=== PATIENT | female | born 1990 | race Caucasian/White ===

== ENCOUNTER 2018-11-16 00:45 | Emergency (ER) | payer OTHER ==
[2018-11-16] MEDS ORDERED: Ibuprofen TAB* 600 MG PO ONE (03:00)
[2018-11-16] MEDS ORDERED: Acetaminophen TAB* 325 MG PO ONE (03:00)
--- NOTE | 2018-11-16 03:28 | ED ---
Upper Extremity Pain - HPI Summary HPI Summary: Pt is a 28 y/o F presenting to the ED with a chief complaint of L elbow pain. She states she was walking home when she fell and her L elbow landed on some rocks. She also hurt her ankle, and reports some bruising. She denies taking any blood thinners or experiencing fevers. - History of Current Complaint Chief Complaint: EDFall Stated Complaint: FALL PER PT Time Seen by Provider: 11/16/18 02:52 Hx Obtained From: Patient Mechanism Of Injury: Fall From A Standing Position Onset/Duration: Started Hours Ago, Still Present Timing: Constant, Lasting Hours Severity Initially: Moderate Severity Currently: Moderate Pain Location: Elbow - left Aggravating Factor(s): Nothing Alleviating Factor(s): Nothing Associated Signs & Symptoms: Positive: Bruising. Negative: Fever - Allergies/Home Medications Allergies/Adverse Reactions: Allergies Allergy/AdvReac Type Severity Reaction Status Date / Time Sulfa (Sulfonamide Allergy Unknown Verified 11/16/18 00:53 Antibiotics) Reaction Details Home Medications: Home Medications CloZAPine TAB* 100 mg PO DAILY 11/16/18 [History Confirmed 11/16/18] PMH/Surg Hx/FS Hx/Imm Hx Previously Healthy: Yes Endocrine/Hematology History: Denies: Hx Diabetes Cardiovascular History: Denies: Hx Hypertension Sensory History: Reports: Hx Contacts or Glasses Opthamlomology History: Reports: Hx Contacts or Glasses Neurological History: Denies: Hx Headaches, Hx Migraine Psychiatric History: Reports: Hx Bipolar Disorder - pt states she has bipolar Denies: Hx Eating Disorder, Hx of Violent Episodes Against Others - Cancer History Hx Chemotherapy: No Hx Radiation Therapy: No Hx Palliative Cancer Treatment: No - Surgical History Hx Anesthesia Reactions: No Infectious Disease History: No Infectious Disease History: Denies: Traveled Outside the [place] in Last 30 Days - Family History Known Family History: Negative: Renal Disease - Social History Alcohol Use: Rare Hx Substance Use: No Substance Use Type: Reports: None Hx Tobacco Use: No Smoking Status (MU): Never Smoked Tobacco Review of Systems Negative: Fever Positive: Arthralgia Positive: Bruising All Other Systems Reviewed And Are Negative: Yes Physical Exam - Summary Physical Exam Summary: Constitutional: Well-developed, Well-nourished, Alert. (-) Distressed Skin: Warm, Dry HENT: Normocephalic; Atraumatic Eyes: Conjunctiva normal Neck: Musculoskeletal ROM normal neck. (-) JVD, (-) Stridor, (-) Tracheal deviation Cardio: Rhythm regular, rate normal, Heart sounds normal; Intact distal pulses; Radial pulses are 2+ and symmetric. (-) Murmur Pulmonary/Chest wall: Effort normal. (-) Respiratory distress, (-) Wheezes, (-) Rales Abd: Soft, (-) tenderness, (-) Distension, (-) Guarding, (-) Rebound Musculoskeletal: (-) Edema. Minimal tenderness to her L elbow. Minimal ROM but able to range. Lymph: (-) Cervical adenopathy Neuro: Alert, Oriented x3 Psych: Mood and affect Normal Triage Information Reviewed: Yes Vital Signs On Initial Exam: Initial Vitals Temp Pulse Resp BP Pulse Ox 100.1 F 94 16 146/96 99 11/16/18 00:45 11/16/18 00:45 11/16/18 00:45 11/16/18 00:45 11/16/18 00:45 Vital Signs Reviewed: Yes Procedures - Sedation Patient Received Moderate/Deep Sedation with Procedure: No - Splinting Left Upper Extremity Location: L elbow Hand-Made Type: fiberglass Splint: posterior long arm Pre-Proc Neuro Vasc Exam: normal Post-Proc Neuro Vasc Exam: normal, unchanged from pre-exam Splint Applied by Provider: [facility] - Vital Signs Vital Signs Temp Pulse Resp BP Pulse Ox 11/16/18 00:45 100.1 F 94 16 146/96 99 - Laboratory Lab Statement: Any lab studies that have been ordered have been reviewed, and results considered in the medical decision making process. - Radiology Elbow XR Radiology Interpretation Completed By: Radiologist Summary of Radiographic Findings: Bilateral humeral condyle fractures. Elbow joint effusion. ED physician has reviewed this report. Shoulder XR Radiology Interpretation Completed By: ED Physician Summary of Radiographic Findings: Negative for fracture. Pending official radiology report. Wrist XR Radiology Interpretation Completed By: ED Physician Summary of Radiographic Findings: Negative for fracture. Pending official radiology report. - CT Upper Extremity CT CT Interpretation Completed By: Radiologist Summary of CT Findings: Comminuted fracture of the distal humerus. ED physician has reviewed this report. Course/Dx - Course Course Of Treatment: Patient is here after mechanical fall. The patient had an x-ray of her elbow showed a fracture. Orthopedic surgery was counseled to the recommended CT scan and follow-up in clinic today for likely urgent surgery. Patient had a splint placed and was placed in a sling. Patient was discharged with tramadol. - Diagnoses Provider Diagnoses: Left elbow fracture Discharge ED - Sign-Out/Discharge Documenting (check all that apply): Patient Departure - Discharge Plan Condition: Stable Disposition: HOME Prescriptions: Clotrimazole 1% TOPICAL (NF) [Lotrimin 1% TOPICAL (NF)] 1 applic TOPICAL BID #1 tube traMADol TAB* [Ultram*] 50 mg PO Q8HR PRN #20 tab MDD 150 mg PRN Reason: Pain - Severe Patient Education Materials: Elbow Fracture (ED) Forms: *School Release Referrals: [facility] [Outside] Landy Harris MD [Medical Doctor] - Additional Instructions: Take Tylenol and Motrin for your pain. Call Dr. Nguyen office at 0700 this morning to set up an appointment for today. Take your pain medication as prescribed. Come back to the emergency department with any numbness, tingling, or severe pain. - Billing Disposition and Condition Condition: STABLE Disposition: Home - Attestation Statements Document Initiated by Scribe: Yes Documenting Scribe: Kala Bowling Provider For Whom Rebekah is Documenting (Include Credential): German Heath MD. Scribe Attestation: Kala Rudd, scribed for German Heath MD. on 11/16/18 at 0614. Scribe Documentation Reviewed: Yes Provider Attestation: The documentation as recorded by the scribKala miner accurately reflects the service I personally performed and the decisions made by me, German Heath MD. Status of Scribe Document: Viewed Consult Consult: [id number] - I spoke with Dr. Rolon about the pt's present condition who states she will look at the XR films. She suggests posterior splint, XRs of the wrist and shoulder, and f/u with Dr. Harris.
[2018-11-16 06:28] VITALS: BP 108/70
== END 2018-11-16 06:11 | disposition home or self-care (01) ==
LOC: ED 00:45
DX: S42.452A Displaced fracture of lateral condyle of left humerus, initial encounter for closed fracture (principal); S42.462A Displaced fracture of medial condyle of left humerus, initial encounter for closed fracture; W19.XXXA Unspecified fall, initial encounter; Y92.9 Unspecified place or not applicable; F31.9 Bipolar disorder, unspecified; Z79.899 Other long term (current) drug therapy; Z88.2 Allergy status to sulfonamides
CPT/HCPCS: 99282; A9270-GY

== ENCOUNTER → 2018-11-24 07:38 | Day surgery (SDC) | payer OTHER ==
--- NOTE | 2018-11-20 19:40 | HP ---
PREOPERATIVE HISTORY AND PHYSICAL: DATE OF SURGERY/ADMISSION: 11/24/18 ATTENDING PROVIDER: Dr. Harris * (DICTATED BY SUDHA OSEI) HISTORY OF PRESENT ILLNESS: This is a 28-year-old female; she is in the office today with her mother. The patient has been diagnosed with bipolar disorder. She sustained injury to her left elbow on 11/15/18 when she fell. She is not exactly sure how she fell, but she was talking in the home at the time. She was seen at the [facility] Emergency Room where x-ray showed a very comminuted intraarticular distal fracture of the distal humerus. She was placed in a splint and referred to Dr. Harris for followup and treatment considerations. She denies any associated numbness and tingling. After evaluation by Dr. Harris and review of x-rays, it is recommended that she undergo surgical intervention for the best outcome and the patient has consented to proceed with surgery. PAST MEDICAL HISTORY: 1. Bipolar disorder. PAST SURGICAL HISTORY: Oral surgery. CURRENT MEDICATIONS: 1. Clozapine 100 mg daily. 2. Narcissa carbonate 300 mg 4 tabs daily. ALLERGIES: SULFA DRUGS. FAMILY HISTORY: Cancer, diabetes, heart disease, hypertension, stroke. SOCIAL HISTORY: The patient lives at home with her mom. She is a senior at [employer], studying business. She denies tobacco use and recreational drug use. She drinks alcohol or rare occasion. REVIEW OF SYSTEMS: Negative for general, cephalic, cardiovascular, respiratory , GI, , other musculoskeletal, integumentary, endocrine, neurologic, and hematologic symptoms. Infectious disease: Negative for MRSA, hepatitis C, HIV. PHYSICAL EXAMINATION GENERAL: Well-developed, well-nourished 28-year-old female in no acute distress. VITAL SIGNS: Height 5 feet 4 inches, weight 172 pounds. Pulse rate 87, blood pressure 128/78. HEENT: Normocephalic, atraumatic. Pupils are equal, round, and reactive to light and accommodation. Extraocular movements are intact. Throat is clear. NECK: Supple. No palpable lymph nodes. PULMONARY: Lungs are clear to auscultation bilaterally. No wheezes, rales, or rhonchi. CARDIOVASCULAR: Regular rate and rhythm. S1 and S2. No murmurs, rubs, or gallops. No edema. ABDOMEN: Positive bowel sounds. Soft and nontender. NEUROLOGICAL: Alert and oriented x3. Cranial nerves II through XII are intact. Sensation is intact to light touch. MUSCULOSKELETAL: On exam of her left elbow, her arm is maintained in a splint. She has good motion in her wrist and her fingers. Neurovascular function is intact. DIAGNOSTIC STUDIES/LAB DATA: Imaging studies, x-rays and a CT scan of the left elbow show a very comminuted, very distal intraarticular fracture of the distal humerus. IMPRESSION: As above. PLAN: The patient is scheduled to undergo an open reduction internal fixation of the left elbow with Dr. Harris on 11/24/18. She will return to the office 10 days postop for followup and suture removal. A prescription for gabapentin was e- scribed to the patient's pharmacy for postoperative pain management, and she may also use [id number] Tylenol. SUDHA OSEI [id number]/[facility] #: [id number] [place]
[~2018-11-24 07:38] MED LIST: Acetaminophen IV 1GM/100ML * 1,000 MG/100 ML VIAL IVPB ONE; Buffered Lidocaine 1% SYRIN* 1 ML/SYRINGE INTRADERM ONE; Bupivacaine 0.5%* 50 ML MDV VIAL ONE; DiMENhydriNATE IV* 50 MG/ML VIAL IV PUSH PRN; DiMENhydriNATE IV* 50 MG/ML VIAL ONE; Ketorolac INJ* 30 MG/ML 1 ML VIAL IV PRN; Lactated Ringers 1000 ML Bag* 1,000 ML IV SCH; Lidocaine 2% PF * 5 ML VIAL ONE; Midazolam* 1 MG/ML 2 ML VIAL (2 MG) ONE; Naloxone* 0.4 MG/ML 1 ML VIAL IV PRN; Propofol* 10 MG/ML 20 ML BTL ONE; Scopolamine 1.5 mg* PATCH ONE; Sodium Citrate/Citric Acid* 15 ML UDC ONE; Sodium Citrate/Citric Acid* 15 ML UDC PO ONE; Succinylcholine* 20 MG/ML 10 ML VIAL ONE; ceFAZolin 2 GM PREMIX in ORs 2 GM/50 ML BAG ONE; fentaNYL* 50 MCG/ML 2 ML VIAL (100 MCG VIAL) IV PRN; fentaNYL* 50 MCG/ML 2 ML VIAL (100 MCG VIAL) ONE
[2018-11-24 15:10] VITALS: BP 129/82
--- NOTE | 2018-11-24 22:04 | OP ---
DATE OF OPERATION: 11/24/18 [facility] DATE OF : 86 SURGEON: Landy Harris MD [employer] ENGINEER: SUDHA Salmeron ANESTHESIA: General and block. PRE-OP DIAGNOSIS: Distal humerus fracture, intraarticular, on the left. POST-OP DIAGNOSIS: Distal humerus fracture, intraarticular, on the left with extensive comminution. OPERATIVE PROCEDURE: Open reduction internal fixation of left distal humerus. ESTIMATED BLOOD LOSS: Zero. TOURNIQUET TIME: 2 hours. INDICATIONS FOR PROCEDURE: Charity is a 28-year-old woman who fell and injured her left elbow. CT scan shows a markedly comminuted intraarticular fracture of the distal humerus. Fracture fragments are very distal. She presents for ORIF. DESCRIPTION OF PROCEDURE: The patient was brought to the operating room and was given a block anesthetic and a general anesthetic, and she was placed in the right lateral decubitus position with the beanbag and all of her bony prominences padded. The upper arm was on a post and draped over with the posterior aspect of the elbow exposed. A longitudinal incision was made over the posterior aspect of the elbow and dissected down to the extensor mechanism. The ulnar nerve was carefully dissected out and protected during the entire procedure. The triceps tendon was incised medially and then on to the olecranon and ulna and subperiosteally dissected off the proximal ulna with a tiny flake of posterior bone at the tip of the olecranon process. Triceps was then retracted laterally and this gave us full visualization of the distal humerus. There was a lateral condyle fragment which was largely comminuted with an articular capitellum fragment. This was reduced and secured with two 3.0 cannulated screws with washers, 40 mm each and with 2 Acutrak screws, 1 mini and 1 standard. The articular fragment was not especially stable with the Acutrak screws, but was well reduced. Next, there was a large anterior fragment of the trochlea, which we carefully dissected out for medial and were able to reduce that and secure it with 3 mini Acutrak screws from posterior to anterior in 3 different planes. We were then able to place the elbow through range of motion, there was no crepitus. There was very good stability of the ulna and the radius on the distal humerus. There was very good supination and pronation of the forearm. The wound was copiously irrigated with saline. The triceps tendon was repaired with a #5 FiberWire through drill holes in the proximal ulna and the flake of bone that had been was repositioned. During the entire procedure, the surgical garment assembly supervisor, Debra Siegel, was essential for safe completion of the case for use in positioning and retracting. The ulnar nerve was again checked and was in very good condition. The wound was copiously irrigated with saline including in the elbow joint. The subcutaneous tissue was closed with 2-0 Vicryl and the skin with skin katie. The wound was dressed with Xeroform, 4x4 , Webril, and a posterior splint in 90 degrees of flexion. The patient tolerated the procedure well and was brought to the recovery room in good condition. [id number]/[facility] #: [id number] [facility]
--- NOTE | 2018-11-28 09:27 | OP ---
CC: Dr. Harris OPERATIVE REPORT: ADDENDUM: DATE OF OPERATION: 11/24/18 There is a blank in that note and that should read, the flake of bone that had been created with the saw was repositioned. [id number]/[facility] #: [id number] MTDD
== END | disposition home or self-care (01) ==
LOC: OR 07:38
PROVIDERS: ATTEND Orthopaedic Surgery
DX: S42.452A Displaced fracture of lateral condyle of left humerus, initial encounter for closed fracture (principal); W19.XXXA Unspecified fall, initial encounter; Y92.009 Unspecified place in unspecified non-institutional (private) residence as the place of occurrence of the external cause; F31.9 Bipolar disorder, unspecified; G89.18 Other acute postprocedural pain
CPT/HCPCS: 81025; A9270-GY; C1713; C1769; C1776; J0330; J0690; J1240; J2250; J2704; J3010; J3490